=== PATIENT | female | born 1990 | race Caucasian/White ===

== ENCOUNTER 2017-12-03 17:57 | Emergency (ER) | payer OTHER ==
[~2017-12-03] VITALS: Ht 162.6 cm; Wt 54.4 kg
== END 2017-12-03 19:06 | disposition home or self-care (01) ==
LOC: ER 17:57
DX: L55.0 Sunburn of first degree (principal)

== ENCOUNTER 2018-04-26 12:26 | Emergency (ER) | payer OTHER ==
[~2018-04-26] VITALS: Ht 160 cm; Wt 52.2 kg
[2018-04-26] MEDS ORDERED: MINASTRIN 24 F1 EACH (13:00)
[2018-04-26] MEDS ORDERED: PNEU16DI2 (13:01)
== END 2018-04-26 15:53 | disposition home or self-care (01) ==
LOC: ER 12:26
DX: S20.212A Contusion of left front wall of thorax, initial encounter (principal); V49.9XXA Car occupant (driver) (passenger) injured in unspecified traffic accident, initial encounter; Y93.89 Activity, other specified; Y92.488 Other paved roadways as the place of occurrence of the external cause; Y99.8 Other external cause status

== ENCOUNTER 2021-05-04 19:14 | Emergency (ER) | payer OTHER ==
[~2021-05-04] VITALS: Ht 162.6 cm; Wt 54.4 kg
[~2021-05-04 19:14] MED LIST: MINASTRIN 24 F1 EACH; PNEU16DI2
== END 2021-05-04 22:52 | disposition home or self-care (01) ==
LOC: ER 19:14
DX: A90 Dengue fever [classical dengue] (principal); D69.6 Thrombocytopenia, unspecified; Z03.818 Encounter for observation for suspected exposure to other biological agents ruled out